=== PATIENT | female | born 1955 | race Caucasian/White ===

== ENCOUNTER 2017-07-30 13:47 | Inpatient (IN) | payer OTHER ==
[~2017-07-30] VITALS: Ht 167.6 cm; Wt 104.3 kg
[~2017-07-30 13:47] MED LIST: VALS40TA4 PO
--- NOTE | 2017-07-30 13:47 | NUR ---
ON/OFF PALPITATIONS, CHEST FEELS HEAVY SINCE YESTERDAY. PLACED ON MONITOR. AWAITING MD ORDER
[2017-07-30 14:30] LABS: BASOPHILS % (AUTO) 0.4 % (0.0-2.0); EOSINOPHILS % (AUTO) 0.9 % (0.0-6.0); HEMATOCRIT 40 % (33-45); HEMOGLOBIN 13.4 g/dL (11.5-14.8); LYMPHOCYTES # (AUTO) 2.8 /CMM (0.8-4.8); LYMPHOCYTES % (AUTO) 28.1 % (20.0-44.0); MEAN CORPUSCULAR HGB CONC 34 g/dl (31.0-36.0); MEAN CORPUSCULAR VOLUME 87 fL (82-100); MONOCYTES # (AUTO) 0.5 /CMM (0.1-1.30); MONOCYTES % (AUTO) 5.5 % (2.0-12.0); NEUTROPHILS # (AUTO) 6.5 /CMM (1.8-8.9); NEUTROPHILS % (AUTO) 65.1 % (43.0-81.0); PLATELET COUNT (AUTO) 224 /CMM (150-450); RDW COEFFICIENT OF VARIATION 12.3 (11.5-15.0); RED BLOOD CELL COUNT(AUTO) 4.53 MIL/uL (4.0-5.2); WHITE BLOOD COUNT (AUTO) 9.9 K/uL (4.3-11.0)
[2017-07-30] MEDS ORDERED: ASPIRIN 325 MG TABLET PO ONE (14:30)
[2017-07-30] MEDS ORDERED: METOPROLOL TARTRATE 25 MG TABLET PO ONE (14:30)
[2017-07-30] MEDS ORDERED: ASPIRIN 325 MG TABLET ONE (14:38)
[2017-07-30] MEDS ORDERED: METOPROLOL TARTRATE 50 MG TABLET ONE (14:38)
[2017-07-30 14:43] LABS: INR 0.94 (0.85-1.15)
[2017-07-30 14:44] LABS: CALCIUM, SERUM 8.8 mg/dL (8.5-10.1); CARBON DIOXIDE 28 mmol/L (21-32); CHLORIDE 104 mmol/L (98-107); CREATININE 0.9 mg/dL (0.6-1.3); GLUCOSE 102 mg/dL (74-106); POTASSIUM 3.6 mmol/L (3.5-5.1); SODIUM SERUM 140 mmol/L (136-145); UREA NITROGEN, BLOOD 20 mg/dL (7-18)
[2017-07-30 14:48] LABS: TROPONIN I < 0.017 ng/mL (0.00-0.056)
[2017-07-30 14:53] LABS: ALANINE AMINOTRANSFERASE 30 U/L (12-78); ALBUMIN 3.7 g/dL (3.4-5.0); ALKALINE PHOSPHATASE 48 U/L (46-116); ASPARTATE AMINOTRANSFERASE 18 U/L (15-37); BILIRUBIN,TOTAL 0.3 mg/dL (0.2-1.0); TOTAL PROTEIN, SERUM 7.7 g/dL (6.4-8.2)
--- NOTE | 2017-07-30 16:25 | NUR ---
CALLED NURSING LEASE PURCHASE TRUCK DRIVER AND REQUESTED A TELE BED FOR THIS PT.
--- NOTE | 2017-07-30 16:31 | NUR ---
CALLED [facility] FOR PANEL CALL AND DR WILL WAS PAGED
[2017-07-30] MEDS ORDERED: MORPHINE SULFATE INJ 2 MG/ML DISP.SYRIN IV PRN (17:00)
[2017-07-30] MEDS ORDERED: ONDANSETRON HCL/PF 4 MG/2 ML VIAL IVP PRN (17:00)
[2017-07-30] MEDS ORDERED: NITROGLYCERIN 0.4 MG/TAB BOTTLE SL PRN (17:00)
[2017-07-30] MEDS ORDERED: ACETAMINOPHEN 325 MG TABLET PO PRN (17:00)
[2017-07-30] MEDS ORDERED: LISI1TAB11 PO (17:19)
[2017-07-30] MEDS ORDERED: FENO200C PO (17:19)
[2017-07-30] MEDS ORDERED: AMLO5TAB7 PO (17:19)
[2017-07-30] MEDS ORDERED: METOPROLOL TARTRATE INJ 5 MG/5 ML AMPUL ONE (17:19)
[2017-07-30] MEDS ORDERED: ATOR20TA PO (17:19)
--- NOTE | 2017-07-30 17:30 | NUR ---
VERBAL ORDER DR NEAL METOPROLOL 5MG IV X1
--- NOTE | 2017-07-30 17:35 | NUR ---
PT IS ASSIGNED TO [facility]#: [id number], PT IS DIAGNOSED WITH CHEST PAIN AND RAPID A FIB, AND DR WILL IS THE ACCEPTING MD.
--- NOTE | 2017-07-30 17:47 | NUR ---
GAVE REPORT TO YI TIMMONS TELE 119-1 CP AND RAPID AFIB TRANSFER VIA ACLS PROTOCOL. DR WILL ADMITITNG
[2017-07-30] MEDS ORDERED: METOPROLOL TARTRATE INJ 5 MG/5 ML AMPUL IVP ONE (18:00)
[2017-07-30] MEDS ORDERED: APIXABAN 5 MG TABLET PO ONE (18:00)
[2017-07-30] MEDS ORDERED: AMIODARONE 150 MG in IV D5W 100 ML IV ONE (18:00)
[2017-07-30] MEDS ORDERED: AMIODARONE 900 MG in IV D5W 500 ML IV PRN (18:00)
[2017-07-30 18:15] VITALS: BP 138/81
--- NOTE | 2017-07-30 18:20 | NUR ---
MATTIE RN NOTES RECEIVED PATIENT FROM ER. DX CHEST PAIN BY DR. WILL. AAO X 4, ON 2L O2, NC, NOT IN ANY DISTRESS. AFIB HR 113 ON TELE MONITOR. DENIES CHEST PAIN OR DISCOMFORT. RAC G 18 FLUSHES WELL. SITE CLEAR. NO SKIN ISSUES. AMBULATORY. UNIT ORIENTATION DONE, CALL IGHT WITHIN REACH. NEEDS ANTICIPATED. WILL CONTINUE TO MONITOR.
[2017-07-30] MEDS: METOPROLOL TARTRATE 25 MG TABLET PO SCH (18:31)
[2017-07-30 18:44] LABS: MAGNESIUM 2.1 mg/dL (1.8-2.4); PHOSPHORUS 4.5 mg/dL (2.5-4.9)
--- NOTE | 2017-07-30 18:47 | NUR ---
MATTIE RN NOTES STARTED CORDARONE BOLUS IV.
[2017-07-30 18:56] LABS: THYROID STIMULATING HORMONE 2.651 uIU/mL (0.358-3.74)
--- NOTE | 2017-07-30 19:55 | NUR ---
RN NOTE STARTED AMIODARONE IV DRIP @ 1MG/HR OR 33.33ML/HR FOR NEXT SIX HOURS.
[2017-07-30 20:00] VITALS: BP_SYST 130; BP_SYST 192; BP_DIAS 67; BP_DIAS 82
[2017-07-30] MEDS ORDERED: AMIODARONE 900 MG in IV D5W 482 ML IV PRN (20:00)
--- NOTE | 2017-07-31 | NUR ---
RN NOTE PT IS NOW CONTROLLED A-FIB @ 80-90. WILL CONTINUE TO MONITOR.
[2017-07-31 01:08] VITALS: BP 124/70
--- NOTE | 2017-07-31 02:00 | NUR ---
RN NOTE DECREASED AMIODARONE DRIP TO 0.5 MG/HR OR 16.66ML/HR X 18HRS. PT TOLERATING WELL.
[2017-07-31 04:00] VITALS: BP 132/86
--- NOTE | 2017-07-31 07:30 | NUR ---
MATTIE RN AM NOTES RECEIVED PATIENT IN BED, ASLEEP, AWAKEN EASILY, AO X 4, ON 2L O2, NC, NOT IN ANY DISTRESS. AFIB HR 119 ON TELE MONITOR. DENIES CHEST PAIN OR DISCOMFORT. RAC G 18 FLUSHES WELL.ONGOING AMNIODARONE DRIP AT 0.5MG/MIN [TILL 1900] SITE CLEAR. NO SKIN ISSUES. AMBULATORY. CALL LIGHT WITHIN REACH. NEEDS ANTICIPATED. WILL CONTINUE TO MONITOR.
[2017-07-31 08:00] VITALS: BP 140/88
[2017-07-31 08:37] LABS: INR 0.97 (0.87-1.13)
[2017-07-31] MEDS: VALSARTAN 40 MG TABLET PO SCH (08:50)
[2017-07-31] MEDS: METOPROLOL TARTRATE 25 MG TABLET PO SCH ×2 (08:50→16:53)
--- NOTE | 2017-07-31 09:30 | NUR ---
MATTIE RN NOTES DUE MEDS GIVEN.
[2017-07-31 12:00] VITALS: BP 136/89
--- NOTE | 2017-07-31 15:41 | NUR ---
MATTIE RN NOTES PATIENT TRANSFERRED TO RM 107. PATIENT FOR SCHEDULED CARDIOVERSION TOMORROW AT [address] MACIEL. CONSENT SIGNED. NPO EXCEPT MEDS PMN. PLEASE BRING PATIENT TO ICU AT 0700.
[2017-07-31 16:00] VITALS: BP 127/84
[2017-07-31] MEDS: AMIODARONE HCL 200 MG TABLET PO SCH (16:53)
[2017-07-31] MEDS ORDERED: APIXABAN 5 MG TABLET PO ONE (17:00)
[2017-07-31 17:24] LABS: BASOPHILS # (AUTO) 0.1 /CMM (0.0-0.2); BASOPHILS % (AUTO) 0.6 % (0.0-2.0); EOSINOPHILS % (AUTO) 0.8 % (0.0-6.0); HEMATOCRIT 39 % (33-45); LYMPHOCYTES # (AUTO) 2.5 /CMM (0.8-4.8); LYMPHOCYTES % (AUTO) 25.3 % (20.0-44.0); MEAN CORPUSCULAR HGB CONC 33 g/dl (31.0-36.0); MEAN CORPUSCULAR VOLUME 90 fL (82-100); MONOCYTES # (AUTO) 0.6 /CMM (0.1-1.30); MONOCYTES % (AUTO) 6.4 % (2.0-12.0); NEUTROPHILS # (AUTO) 6.7 /CMM (1.8-8.9); NEUTROPHILS % (AUTO) 66.9 % (43.0-81.0); PLATELET COUNT (AUTO) 222 /CMM (150-450); RDW COEFFICIENT OF VARIATION 13.6 (11.5-15.0); RED BLOOD CELL COUNT(AUTO) 4.36 MIL/uL (4.0-5.2); WHITE BLOOD COUNT (AUTO) 9.9 K/uL (4.3-11.0)
[2017-07-31 17:44] LABS: CREATININE 0.7 mg/dL (0.6-1.3); PHOSPHORUS 3.4 mg/dL (2.5-4.9); POTASSIUM 4.3 mmol/L (3.5-5.1)
[2017-07-31] MEDS: APIXABAN 5 MG TABLET PO SCH (17:44)
--- NOTE | 2017-07-31 18:38 | NUR ---
MATTIE RN CLOSING NOTES PT RESTING IN BED, AO X 4, FAMILY AT BEDSIDE. ON 2L O2, NC, NOT IN ANY DISTRESS. AFIB HR 113 TO 120s ON TELE MONITOR. DENIES CHEST PAIN OR DISCOMFORT. RAC G 18 FLUSHES WELL. SITE CLEAR. NO SKIN ISSUES. AMBULATORY. CALL LIGHT WITHIN REACH. NEEDS MET, WILL ENDORSE TO NEXT SHIFT FOR SHANE.
--- NOTE | 2017-07-31 19:30 | NUR ---
MATTIE/RN NOTES: RECEIVED PT. WALKING AROUND THE NURSING STATION W/ FAMILY MEMBERS. A/O X 4. O2 @ 2LPM VIA N/C SAT 98%. DENIES ANY C/O PAIN OR SOB AT PRESENT. ON TELE MONITOR W/ AFIB. LFA G 22 PATENT AND INTACT W/ NO S/S OF INFECTION/INFILTRATION NOTED. CONTINENT OF B/B. WILL CONTINUE TO MONITOR.
[2017-07-31 20:00] VITALS: BP 137/93
--- NOTE | 2017-07-31 20:21 | NUR ---
MATTIE/RN NOTES: PT. CONVERTED SR. CALLED DR. MACIEL TO INFORM. PER DR. MACIEL CALL NURSING PHARMACY TECHNOLOGY INSTRUCTOR TO CANCEL THE PROCEDURE IN THE MORNING. CHARGE NURSE VERONICA MADE AWARE. CHARGE NURSE INFORMED NURSING PHARMACY TECHNOLOGY INSTRUCTOR. WILL CONTINUE TO MONITOR.
[2017-08-01] VITALS: BP 134/75
[2017-08-01 00:13] VITALS: BP 134/75
[2017-08-01 04:00] VITALS: BP 134/75
[2017-08-01 04:21] VITALS: BP 141/79
--- NOTE | 2017-08-01 07:14 | NUR ---
MATTIE/RN NOTES: NO ACUTE CHANGES NOTED DURING THIS SHIFT. REPORT GIVEN TO AM NURSE FOR SHANE.
[2017-08-01 08:00] VITALS: BP 149/78
[2017-08-01] MEDS: APIXABAN 5 MG TABLET PO SCH (08:38)
[2017-08-01 08:39] VITALS: BP 149/78
[2017-08-01] MEDS: AMIODARONE HCL 200 MG TABLET PO SCH (08:39)
[2017-08-01] MEDS: VALSARTAN 40 MG TABLET PO SCH (08:39)
[2017-08-01] MEDS: METOPROLOL TARTRATE 25 MG TABLET PO SCH (08:39)
--- NOTE | 2017-08-01 10:30 | NUR ---
RN CLOSING NOTE PATIENT DISCHARGED HOME. PAPERWORK COMPLETED AND SIGNED.
[2017-08-01] MEDS ORDERED: DRONEDARONE HYDROCHLORIDE 400 MG TABLET PO SCH (17:00)
== END 2017-08-01 10:30 | disposition home or self-care (01) | DRG 201 ==
LOC: ER 13:56 → TELE1 17:48 → TELE-TD 18:13 → MEDSG1 08-01 10:01
PROVIDERS: ADMIT Internal Medicine; ATTEND Internal Medicine
DX: I48.91 Unspecified atrial fibrillation (principal); N17.9 Acute kidney failure, unspecified; D68.59 Other primary thrombophilia; E78.5 Hyperlipidemia, unspecified; I10 Essential (primary) hypertension; E66.9 Obesity, unspecified; Z68.37 Body mass index [BMI] 37.0-37.9, adult; E55.9 Vitamin D deficiency, unspecified; R07.9 Chest pain, unspecified; G47.33 Obstructive sleep apnea (adult) (pediatric); R00.1 Bradycardia, unspecified
CPT/HCPCS: 36415; 71045-TC; 80048-TC; 80061-TC; 80076-TC; 82306; 83735-TC; 84100-TC; 84439-TC; 84443-TC; 84484-TC; 85025-TC; 85610-TC; 85730-TC; 87081-TC; 93307-TC; A4606; J0282; J3490; J7060; Z7610

== ENCOUNTER 2017-09-15 11:06 | Emergency (ER) | payer OTHER ==
[~2017-09-15] VITALS: Ht 172.7 cm; Wt 97.5 kg
[~2017-09-15 11:06] MED LIST changes: +AMLO5TAB2 PO; +ATOR20TA PO; +FENO200C PO; +LISI1TAB11 PO; -VALS40TA4 PO
--- NOTE | 2017-09-15 11:10 | NUR ---
OCTAVIO FROM HOME , AOX4 CC NOSEBLEED X 30 MINUTES , DENIES TRAUMA, HYPERTENSIVE AND TOOK BP MEDS INSPECTOR WREATH , WILL CONTINUE TO MONITOR
--- NOTE | 2017-09-15 12:21 | NUR ---
Patient discharged to home in stable condition. Written and verbal after care instructions given. Patient verbalizes understanding of instruction. ambulatory with a steady gait.
--- NOTE | 2017-09-15 12:21 | NUR ---
Patient discharged to home in stable condition. Written and verbal after care instructions given. Patient verbalizes understanding of instruction.
[2017-09-15 12:22] VITALS: BP 142/55
== END 2017-09-15 12:24 | disposition home or self-care (01) ==
LOC: ER 11:08
DX: R04.0 Epistaxis (principal); E78.00 Pure hypercholesterolemia, unspecified; I10 Essential (primary) hypertension; I48.91 Unspecified atrial fibrillation
CPT/HCPCS: 99283; A4606; Z7610

== ENCOUNTER 2021-12-30 23:36 | Inpatient (IN) | payer OTHER ==
[~2021-12-30] VITALS: Ht 167.6 cm; Wt 101.6 kg
[~2021-12-30 23:36] MED LIST changes: +AMLO-212 PO; -AMLO5TAB2 PO; -LISI1TAB11 PO; +LISI1TAB55 PO
--- NOTE | 2021-12-31 00:15 | NUR ---
PAUL FROM HOME C/O CP FOR THE PAST FEW DAYS FELT WORSE TONIGHT. PT AAOX4. TOLERATING R/A WELL WITH NO RESP DISRESS. AMBULATORY WITH STEADY GAIT. CHANGED IN GOWN. CONNECTED PT TO POX AND MONITOR. SAFETY MEASURES IN PLACE.
--- NOTE | 2021-12-31 00:51 | NUR ---
RAC #18G S/L BLOOD COLLECTED AND SENT TO LAB
[2021-12-31] MEDS ORDERED: DILTIAZEM HCL 25 MG IV ONE (00:57)
[2021-12-31] MEDS ORDERED: IV NS 0.9% 1,000 ML BAG IV ONE (01:00)
[2021-12-31] MEDS ORDERED: DILTIAZEM HCL 25 MG IV IV ONE ×2 (01:00→03:30)
--- NOTE | 2021-12-31 01:07 | NUR ---
BENZENE WORKER AT PT'S BEDSIDE
[2021-12-31 01:58] LABS: BASOPHILS % (AUTO) 0.3 % (0.0-2.0); EOSINOPHILS % (AUTO) 1.5 % (0.0-6.0); HEMATOCRIT 38 % (33-45); HEMOGLOBIN 12.6 g/dL (11.5-14.8); LYMPHOCYTES % (AUTO) 38.7 % (20.0-44.0); MEAN CORPUSCULAR HGB CONC 33 g/dl (31.0-36.0); MEAN CORPUSCULAR VOLUME 91 fL (82-100); MONOCYTES # (AUTO) 0.4 K/uL (0.1-1.30); MONOCYTES % (AUTO) 5.7 % (2.0-12.0); NEUTROPHILS # (AUTO) 4.1 K/uL (1.8-8.9); NEUTROPHILS % (AUTO) 53.8 % (43.0-81.0); PLATELET COUNT (AUTO) 185 K/uL (150-450); RED BLOOD CELL COUNT(AUTO) 4.17 MIL/uL (4.0-5.2); WHITE BLOOD COUNT (AUTO) 7.7 K/uL (4.3-11.0)
[2021-12-31 02:40] LABS: CALCIUM, SERUM 9.1 mg/dL (8.5-10.1); CARBON DIOXIDE 29 mmol/L (21-32); CHLORIDE 104 mmol/L (98-107); CREATININE 1.2 mg/dL (0.6-1.3); GLUCOSE 188 mg/dL (74-106); POTASSIUM 3.4 mmol/L (3.5-5.1); SODIUM SERUM 142 mmol/L (136-145); UREA NITROGEN, BLOOD 26 mg/dL (7-18)
--- NOTE | 2021-12-31 03:30 | NUR ---
REPORT GIVEN TO SAFIA Carballo RN FOR SHANE
[2021-12-31] MEDS ORDERED: Z GUARD REMEDY 4 OZ OINT TP PRN (04:00)
[2021-12-31] MEDS ORDERED: MAG HYDROX/AL HYDROX/SIMETH 30 ML UDC PO PRN (04:00)
[2021-12-31] MEDS ORDERED: MAGNESIUM HYDROXIDE 30 ML UDC PO PRN (04:00)
[2021-12-31] MEDS ORDERED: ONDANSETRON HCL/PF 4 MG/2 ML VIAL IVP PRN (04:00)
[2021-12-31] MEDS ORDERED: ACETAMINOPHEN 325 MG TABLET PO PRN (04:00)
[2021-12-31] MEDS ORDERED: RIVA10TA PO (04:12)
[2021-12-31] MEDS ORDERED: CARV12.52 PO ×2 (04:12→13:16)
--- NOTE | 2021-12-31 04:48 | NUR ---
PT TRANSFERRED TO MATTIE VIA ACLS PROTOCOL. VSS. ALL BELONGINGS AND CELLPHONE AT PT'S BEDSIDE. SON AWARE.
[2021-12-31 05:00] VITALS: BP 147/85
--- NOTE | 2021-12-31 05:30 | NUR ---
ENROLLMENT MANAGEMENT COORDINATORMANUFACTURER AGENT NOTE RECEIVED PATIENT FROM ER VIA GURNEY. PATIENT IS AMBULATORY; AWAKE, ALERT AND ORIENTED X 4. ON ROOM AIR; TOLERATING WELL. ABLE TO MAKE NEEDS KNOWN. ON TELEMETRY MONITORING WITH READING OF CONTROLLED A FIB HR-97 BPM. BREATHING EVEN AND NONLABORED. NOT IN ANY FORM OF RESPIRATORY DISTRESS. DENIES ANY PAIN OR DISCOMFORT AT THIS TIME. BODY ASSESSMENT DONE; SKIN IS INTACT. ORIENTED TO STAFF, ROOM AND UNIT. SAFETY MEASURES IMPLEMENTED: CALL LIGHT AND TABLE WITHIN REACH, SIDE RAILS UP X 2, BED IN LOWEST LOCKED POSITION. WILL CONTINUE PLAN OF CARE.
[2021-12-31 05:45] VITALS: BP 147/85
[2021-12-31 06:58] LABS: BASOPHILS % (AUTO) 0.3 % (0.0-2.0); EOSINOPHILS % (AUTO) 1.5 % (0.0-6.0); HEMATOCRIT 35 % (33-45); HEMOGLOBIN 11.9 g/dL (11.5-14.8); LYMPHOCYTES # (AUTO) 2.9 K/uL (0.8-4.8); LYMPHOCYTES % (AUTO) 40.9 % (20.0-44.0); MEAN CORPUSCULAR HGB CONC 34 g/dl (31.0-36.0); MEAN CORPUSCULAR VOLUME 90 fL (82-100); MONOCYTES # (AUTO) 0.4 K/uL (0.1-1.30); MONOCYTES % (AUTO) 6.1 % (2.0-12.0); NEUTROPHILS # (AUTO) 3.6 K/uL (1.8-8.9); NEUTROPHILS % (AUTO) 51.2 % (43.0-81.0); PLATELET COUNT (AUTO) 161 K/uL (150-450); RED BLOOD CELL COUNT(AUTO) 3.95 MIL/uL (4.0-5.2)
--- NOTE | 2021-12-31 07:10 | NUR ---
WATERPROOF BAG SEWER CLOSING NOTE PATIENT IN BED; AWAKE, A/O X 4. STABLE ON ROOM AIR. ON TELEMETRY MONITORING WITH READING OF CONTROLLED A FIB HR-102 BPM. RESPIRATION EQUAL AND UNLABORED. IN NO ACUTE DISTRESS. NO C/O ANY PAIN OR DISCOMFORT MADE AT THIS TIME. ALL NEEDS ATTENDED. SAFETY MEASURES MAINTAINED: CALL LIGHT AND TABLE WITHIN REACH, SIDE RAILS UP X 2, BED IN LOWEST LOCKED POSITION. ENDORSED TO RUMA TIMMONS FOR SHANE.
[2021-12-31 07:14] LABS: ALBUMIN 3.5 g/dL (3.4-5.0); BILIRUBIN,TOTAL 0.3 mg/dL (0.2-1.0); CALCIUM, SERUM 8.5 mg/dL (8.5-10.1); CREATININE 0.9 mg/dL (0.6-1.3); MAGNESIUM 1.6 mg/dL (1.8-2.4); PHOSPHORUS 4.2 mg/dL (2.5-4.9); TOTAL PROTEIN, SERUM 7.2 g/dL (6.4-8.2)
[2021-12-31 07:22] LABS: THYROID STIMULATING HORMONE 3.403 uIU/mL (0.358-3.74)
[2021-12-31] MEDS ORDERED: PANTOPRAZOLE 40 MG TABLET.DR PO SCH (07:30)
--- NOTE | 2021-12-31 07:30 | NUR ---
PREDATORY HUNTER OPENING NOTE PATIENT IN BED; AWAKE, A/O X 4. STABLE ON ROOM AIR. ON TELEMETRY MONITORING WITH READING OF CONTROLLED A FIB HR- 97 BPM. NO SOB OR DISTRESS NOTED . NO C/O ANY PAIN OR DISCOMFORT MADE AT THIS TIME. IV ACCESS RAC #18 INTACT . ALL NEEDS ATTENDED. SAFETY MEASURES MAINTAINED: CALL LIGHT AND TABLE WITHIN REACH, SIDE RAILS UP X 2, BED IN LOWEST LOCKED POSITION. WILL CONTINUE TO MONITOR .
[2021-12-31 08:00] VITALS: BP 150/82
[2021-12-31] MEDS ORDERED: CARVEDILOL 12.5 MG TABLET PO SCH ×2 (09:00→21:00)
[2021-12-31] MEDS ORDERED: HYDROCHLOROTHIAZIDE 25 MG TABLET PO SCH (09:00)
[2021-12-31] MEDS ORDERED: LISINOPRIL (20MG) 20 MG TABLET PO SCH (09:00)
[2021-12-31] MEDS ORDERED: Medication Not On Formulary EA (Fenofibrate,Micronized (Fenofibrate) 200 MG) PO SCH (09:00)
[2021-12-31] MEDS ORDERED: AMLODIPINE BESYLATE 5 MG TABLET PO SCH (09:00)
[2021-12-31] MEDS ORDERED: CARVEDILOL 12.5 MG TABLET PO ONE (10:00)
[2021-12-31] MEDS ORDERED: POTASSIUM CHLORIDE 20 MEQ POWDER PACKET PO ONE (10:00)
[2021-12-31] MEDS: Magnesium 1GM/D5W 100ML PREMIX 100 ML IV SCH ×4 (10:36→13:30)
[2021-12-31] MEDS ORDERED: CHLO25TA2 PO (10:55)
[2021-12-31] MEDS ORDERED: GLIM2TAB31 PO (10:55)
[2021-12-31 12:00] VITALS: BP 110/71
[2021-12-31] MEDS: POTASSIUM CL. PREMIX PERIPHER. 50 ML IV SCH ×2 (13:32→14:54)
[2021-12-31 16:00] VITALS: BP_SYST 108; BP_SYST 127; BP_DIAS 64; BP_DIAS 78
[2021-12-31] MEDS ORDERED: POTASSIUM CHLORIDE 20 MEQ TAB.PRT.SR PO ONE (17:00)
--- NOTE | 2021-12-31 17:54 | NUR ---
MS GOLF CLUB HEAD INSPECTOR NOTES PT ON BED AWAKE , VERBALLY RESPONSIVE , ALERT/ORIENTED X4, ROOM AIR, WITH NO SOB OR DISTRESS NOTED , NO C/O OF PAIN AND DISCOMFORT , ALL DUE MEDS GIVEN ORDERED , NOTED WITH LOW K AND MG AND MG REPLACED WITH IV AND K GIVEN 20 MEQ IV AND 40 MEQ TAB GIVEN ORDERED , PATIENT REFUSED THE REMAINING IV K AND WAS CHANGED TO TABLET FORM , SEEN BY PRESSER AND SHAPER [employer]ITTED GOODS AND CLEARED FOR DISCHARGE , SEEN BY DR VANCE AND WITH ORDER FOR DISCHARGE TO HOME , ALL PAPERS WERE PREPARED AND D/C INSTRUCTIONS PROVIDED TO THE PATIENT REGARDING PAIN , MEDICATIONS , FOLLOW UP WITH PCP AND WHEN TO CALL 911 IN CASE OF EMERGENCY , PATIENT ABLE TO UNDERSTAND INSTRUCTIONS PROVIDED , ALL BELONGINGS AND VALUABLE WERE TAKEN AND FORM WAS SIGNED BY THE PATIENT , TRANSPORTATION WAS PROVIDED BY THE VIA PRIVATE CAR , PRESCRIPTION WAS GIVEN AND PATIENT IV ACCESS WAS REMOVED , INTERVENTION TEACHER REMOVED AND ID BAND REMOVED , PATIENT LEFT WITH NO SOB NO , DISTRESS NOTED , NO C/O OF PAIN AND DISCOMFORT AND WAS BY PICKED UP BY VIA PRIVATE CAR
[2021-12-31] MEDS ORDERED: RIVAROXABAN 10 MG TABLET PO SCH (18:00)
[2021-12-31] MEDS ORDERED: ATORVASTATIN 10 MG TABLET PO SCH (22:00)
== END 2021-12-31 17:58 | disposition home or self-care (01) | DRG 201 ==
LOC: ER 23:42 → TELE 12-31 03:50
DX: I48.0 Paroxysmal atrial fibrillation (principal); D68.69 Other thrombophilia; E11.9 Type 2 diabetes mellitus without complications; E66.9 Obesity, unspecified; E78.00 Pure hypercholesterolemia, unspecified; I10 Essential (primary) hypertension; Z79.899 Other long term (current) drug therapy; Z79.01 Long term (current) use of anticoagulants; Z79.84 Long term (current) use of oral hypoglycemic drugs
CPT/HCPCS: 36415; 71045-TC; 80048-TC; 80053-TC; 83735-TC; 83880; 84100-TC; 84443-TC; 84484-TC; 85025-TC; 85730-TC; 87081-TC; 93307-TC; C9803; G0378; J3475; J3480; J3490; J7030; J7040; J7050

== ENCOUNTER 2023-05-29 22:51 | Emergency (ER) | payer OTHER ==
[~2023-05-29] VITALS: Ht 167.6 cm; Wt 101.6 kg
[~2023-05-29 22:51] MED LIST changes: -AMLO-212 PO; +CARV12.52 PO; +CHLO25TA2 PO; +GLIM2TAB31 PO; +RIVA10TA PO
[2023-05-30] MEDS ORDERED: CLONIDINE HCL 0.1 MG TABLET ONE (01:03)
[2023-05-30] MEDS: CLONIDINE HCL 0.1 MG TABLET PO ONE (01:05)
[2023-05-30 01:45] LABS: BASOPHILS % (AUTO) 0.5 % (0.0-2.0); EOSINOPHILS # (AUTO) 0.1 K/uL (0.0-0.7); HEMATOCRIT 39 % (33-45); HEMOGLOBIN 12.8 g/dL (11.5-14.8); LYMPHOCYTES # (AUTO) 2.7 K/uL (0.8-4.8); LYMPHOCYTES % (AUTO) 33.3 % (20.0-44.0); MEAN CORPUSCULAR HEMOGLOBIN 30 PG (26.0-33.0); MEAN CORPUSCULAR HGB CONC 33 g/dl (31.0-36.0); MEAN CORPUSCULAR VOLUME 89 fL (82-100); MONOCYTES # (AUTO) 0.7 K/uL (0.1-1.30); MONOCYTES % (AUTO) 8.4 % (2.0-12.0); NEUTROPHILS # (AUTO) 4.6 K/uL (1.8-8.9); NEUTROPHILS % (AUTO) 56.8 % (43.0-81.0); PLATELET COUNT (AUTO) 175 K/uL (150-450); RED BLOOD CELL COUNT(AUTO) 4.33 MIL/uL (4.0-5.2)
[2023-05-30] MEDS ORDERED: DILTIAZEM HCL 50 MG IV ONE (01:45)
[2023-05-30] MEDS: DILTIAZEM HCL 50 MG IV IV ONE (01:50)
[2023-05-30 02:16] LABS: CALCIUM, SERUM 9.4 mg/dL (8.5-10.1); POTASSIUM 3.6 mmol/L (3.5-5.1)
[2023-05-30 02:21] LABS: ALBUMIN 3.7 g/dL (3.4-5.0); BILIRUBIN,TOTAL 0.4 mg/dL (0.2-1.0); TOTAL PROTEIN, SERUM 8.2 g/dL (6.4-8.2)
[2023-05-30 03:09] VITALS: BP 137/83; TEMP 98; O2SAT 95
== END 2023-05-30 03:10 | disposition home or self-care (01) ==
LOC: ER 22:55
DX: I48.20 Chronic atrial fibrillation, unspecified (principal); I10 Essential (primary) hypertension; E78.00 Pure hypercholesterolemia, unspecified; Z79.899 Other long term (current) drug therapy
CPT/HCPCS: 99285; 96374; 70450; 71045; 93005 ×2; 85025; 36415; 80053; 84484; J3490

== ENCOUNTER 2024-02-02 11:07 | Emergency (ER) | payer OTHER ==
[~2024-02-02] VITALS: Ht 172.7 cm; Wt 88.5 kg
[2024-02-02 11:16] VITALS: BP 156/102; TEMP 98
[2024-02-02] MEDS ORDERED: HYDR-500 PO (11:54)
[2024-02-02] MEDS ORDERED: LORA10TA7 PO (11:54)
[2024-02-02 12:00] VITALS: O2SAT 99
== END 2024-02-02 12:01 | disposition home or self-care (01) ==
LOC: ER 11:10
DX: L29.9 Pruritus, unspecified (principal); L85.3 Xerosis cutis; I10 Essential (primary) hypertension; E78.00 Pure hypercholesterolemia, unspecified; Z79.01 Long term (current) use of anticoagulants; Z79.899 Other long term (current) drug therapy; W57.XXXA Bitten or stung by nonvenomous insect and other nonvenomous arthropods, initial encounter